=== PATIENT | female | born 1980 | race Hispanic/Latino ===

== ENCOUNTER 2022-02-17 19:16 | Emergency (ER) | payer OTHER ==
[~2022-02-17] VITALS: Ht 157.5 cm; Wt 72.6 kg
[2022-02-17] MEDS ORDERED: LIDOCAINE 1% 5ML-MPF INJ ONE (19:45)
[2022-02-17] MEDS ORDERED: CLEOCIN HCL300 MG PO (19:49)
[2022-02-17] MEDS ORDERED: CEPHALEXIN500 MG PO (19:54)
== END 2022-02-17 20:02 | disposition home or self-care (01) ==
LOC: ER 19:31
DX: S61.210A Laceration without foreign body of right index finger without damage to nail, initial encounter (principal); W26.8XXA Contact with other sharp object(s), not elsewhere classified, initial encounter; Y92.090 Kitchen in other non-institutional residence as the place of occurrence of the external cause
CPT/HCPCS: 99282